=== PATIENT | female | born 1950 | race Caucasian/White ===

== ENCOUNTER → 2017-10-21 | Outpatient (CLI) | payer OTHER, MEDICARE ==
[~2017-10-21] MED LIST: ASPI81TA28 PO; BIMA0.01 OPB; CALCTAB5 PO; CHOL1000 PO; CITA20TA4 PO; CLR10 PO; DEXT1TAB50 PO; FENO48TA9 PO; MELO7.5T5 PO; MULT-506 PO; OMEG10007 PO
[2017-10-21 14:00] VITALS: BP 119/79; PULSE 67; TEMP 36.9; O2SAT 96
--- NOTE | 2017-10-21 15:12 | Radiation Oncology Follow-Up ---
Radiation Oncology Follow-Up Date of Visit Oct 21, 2017. Reason For Visit Annual follow-up Radiation Completion Date APBI 01/15/16 Diagnosis (1) Intraductal carcinoma of right breast Status: Resolved Onset Date: 11/06/2015 Stage: 0 Permanent Comment: Abnormal right breast mammogram Status post stereotactic biopsy 11/06/2015 revealing DCIS grade 3 Estrogen receptor negative, progesterone receptor negative Status post lumpectomy 11/16/2015 Stage pTis NXMX Status post completion of radiation therapy 01/15/2016 utilizing accelerated partial breast irradiation received 3850 cGy Last Edited By: Rere Chamorro on Jan 21, 2016 16:13 History of Present Illness Ms. Nieves has a family history of breast cancer. The patient's mother has a history of breast cancer. She has been followed with annual screening mammograms. Her most recent normal mammogram was on 10/04/2014. These were repeated on 10/19/2015. This latest mammogram revealed a new group of punctate calcifications in the upper outer breast at the anterior depth. The left breast was stable. Recommendations were for a magnification CC and true lateral views. The patient went on to have a diagnostic right breast M Ricardo and right breast ultrasound also on 10/19/2015. This again showed clustered punctate and indistinct microcalcifications located at the 11:00 anterior depth position. Targeted real-time ultrasound demonstrated only mildly heterogeneous tissue at the site with no sonographic mass identified. A stereotactic core needle biopsy was advised and patient was scheduled to see Dr. Emil Francois. Patient underwent a stereotactic biopsy on 11/06/2015. 2 areas were biopsied 1 with the calcification and the second biopsy of the area without calcifications. The area with calcifications revealed ductal carcinoma in situ solid with comedo necrosis and nuclear grade 3 of 3. The microcalcifications were associated with DCIS. No invasive carcinoma was seen. Estrogen receptors were negative (less than 1%, week). Progesterone receptors were negative (less than 1%, week). The tissue is not associated with the calcifications also revealed ductal carcinoma in situ solid with focal non-comedo necrosis and nuclear grade 3 of 3. No invasive carcinoma was seen. Case: [id number]. Dr. Francois reviewed with the patient the surgical treatment options. The patient agreed to proceed with a breast conserving technique consisting of a right partial mastectomy. On 11/19/2015 patient underwent a right breast partial mastectomy. This tissue confirmed residual ductal carcinoma in situ, high-grade with necrosis. Microcalcifications were present and no invasive carcinoma was seen. The nuclear grade was 3 and the size of the DCIS was 1.5 x 0.8 x 0.5 cm. The margins were negative however DCIS was present less than 0.1 cm from the superior margin, 0.1 cm from the inferior margin and 0.5 cm from the deep margin. The final AJCC pathologic stage was pTis(DCIS) NX Dr. Francois has asked that we evaluate the patient and reviewed with her the radiation adjuvant treatment options area and it is for this reason the patient is seen in referral. She underwent a CT simulation was found to be a good candidate for accelerated partial breast treatment. She received radiation therapy from 01/09/2016 to 09/2016. She received 3850 cGy Interim History She's been doing well over this past year. She has no changes to her breast. She noticed no masses or tenderness and no change of the axilla. She's had no swelling of her arm. She is up-to-date on mammography. She had a mammogram in [facility] on 10/20/2016. This showed no evidence of breast malignancy. A diagnostic mammogram is recommended in 12 months. BI-RADS Category 2. [address] Francois is now retired. She asked that our office give in order so that she may schedule her next mammogram. She also is concerned about some intermittent rectal bleeding that she has been having. This had been occurring on a daily basis. There was one episode that was a fair amount of blood. It was bright red. Over the past few weeks it is now stopped. She denies any pain. She has a history of a fissure. She has had a colonoscopy within the past 10 years. She had a sphincterotomy performed many years ago. Allergies Coded Allergies: Penicillins (Verified Allergy, Unknown, Hives, 12/06/15) Uncoded Allergies: eye drops (Allergy, Unknown, swelling, 12/06/15) fruit (Allergy, Unknown, swelling, 12/06/15) Home Medications Scheduled Aspirin (Aspirin Ec), 81 MG PO DAILY Bimatoprost (Lumigan), 1 DROPS OPB HS Calcium (Caltrate), 600 MG PO Q2D Cholecalciferol (Vitamin D3), 1 TAB PO DAILY Citalopram Hydrobromide (Citalopram Hydrobromide), 1 TAB PO DAILY Fenofibrate (Tricor), 1 TAB PO DAILY Fish Oil (Hardin-3), 1 CAP PO BID Loratadine (Claritin), 10 MG PO DAILY Meloxicam (Mobic), 7.5 MG PO BID Multivitamin (Multivitamin), 1 TAB PO DAILY Review of Systems Gastrointestinal: Symptoms: WNL, Rectal Bleeding GI Comments: Occ Rectal Bleeding Oral: Symptoms: No Problems Respiratory: Symptoms: WNL Urinary: Symptoms: WNL Skin: Symptoms: No Problems Breast: Right Upper Arm Measurement: 30.0 Right Mid Arm Measurement: 25.9 Right Wrist Measurement: 15.4 Left Upper Arm Measurement: 28.8 Left Mid Arm Measurement: 24.5 Left Wrist Measurement: 15.0 Arm Dominence: Right Physical Exam Vital Signs Date Time Temp Pulse Resp B/P (MAP) Pulse Ox O2 Delivery O2 Flow Rate FiO2 10/21/17 14:00 36.9 67 16 119/79 96 Fatigue: None General Appearance: no apparent distress Eyes: normal inspection, EOMI ENT: normal ENT inspection, hearing grossly normal Neck: no adenopathy, thyroid normal Respiratory/Chest: lungs clear, no respiratory distress, no accessory muscle use Breast: Breast examination reveals well-healed incision of the right breast. There are no masses or tenderness and no axillary adenopathy. Mild fibrous changes. Using the [place] score cosmesis she has a in excellent outcome. The left breast showed no masses or tenderness and no axillary adenopathy. Cardiovascular: regular rate, rhythm, no gallop, no murmur Extremities: no pedal edema Neurologic/Psychiatric: no motor/sensory deficits, alert, normal mood/affect Skin: warm/dry Pain Management Patient Reports Pain: No Pain Management Plan She denies pain therefore requires no pain management. Laboratory Laboratory Results: not applicable Pathology Pathology Results: not applicable Imaging Imaging Studies: were reviewed Imaging Comments Reviewed in the interim history. Assessment & Plan Plan: An order was given for her to have a digital diagnostic mammogram in [place]. This will be a bilateral examination. She wish to schedule the appointments on her own. We discussed the intermittent rectal bleeding. I've asked her to make an appointment with a colorectal surgeon. The sphincterotomy have been performed by Dr. Dumont. I encouraged her to schedule a follow-up appointment with him. She is also going to be following with Dr. Rivera or a new associate that has been hired to replace Dr. Francois. We asked her to return to our office in 1 year. She may call if she has any questions or concerns in the interim. Total Time In Follow-Up I spent 20 minutes speaking to the patient performing examination. I spent 15 minutes reviewing information in completing this note. Copy To Emil Francois M.D.; Jose Rafael Dumont M.D.; Murray Pro D.O.
== END | disposition home or self-care (01) ==
LOC: C.ONC 13:42
PROVIDERS: ATTEND Physician Assistant Medical
DX: Z08 Encounter for follow-up examination after completed treatment for malignant neoplasm (principal); Z92.3 Personal history of irradiation; Z85.3 Personal history of malignant neoplasm of breast